=== PATIENT | male | born 1995 | race African-American/Black ===

== ENCOUNTER 2016-12-22 00:45 | Emergency (ER) | payer OTHER ==
[~2016-12-22] VITALS: Ht 170.2 cm; Wt 63.5 kg
--- NOTE | ~2016-12-22 | CR63 ---
[facility]. [facility] A Service of [facility] & [facility] RADIOLOGY TEXT RESULTS PATIENT: YUKO DUNN LOCATION: SED : 95 UNIT #: [id number] AGE: [address]: Romero Laura MD SEX: M ORDER DR: [id number] [place] [id number] MR#: [id number] Acc #: [id number] NAME: YUKO DUNN. : 1995 SEX: M STUDY DATE/TIME: 12/22/2016 02:06 UNIT: SED ROOM: STUDY DESCRIPTION: CR Chest 2 View Attending Physician: Romero Laura M.D. Ordering Physician: Romero Laura M.D. Primary Care Physician: Gee Bernal M.D. MEDICAL IMAGING REPORT This report is preliminary unless electronic signature is present. EXAM Chest x-ray 12/22 at 02:06 INDICATIONS Cough, chest pain, shortness of air that started last night. History of asthma. FINDINGS PA and lateral examination of the chest upright shows a good expansion of the parenchyma with a normal distribution of the pulmonary vascularity. There is no indication of congestion, effusion, infiltrate, tumor, or nodular density. The pleural reflections and diaphragmatic contours are normal. The cardiac silhouette and mediastinal anatomy is within normal limits. IMPRESSION Normal chest. Dictated by... Manpreet Hatfield Jr., M.D. THIS IS AN ELECTRONICALLY VERIFIED REPORT Manpreet Hatfield Jr., M.D. at 12/25/2016 5:50 AM SALVADOR/diego TD: 12/22/2016 10:46 JOB #: [id number] MEDICAL IMAGING REPORT Page 1 of 1
[~2016-12-22 00:45] MED LIST: ADVAIR 2501 DISK W/D PO; ALBUTEROL MININEB NEB; ALBUTEROL17 GM; ALBUTEROL17 GM INH; CILOXAN5 ML OD; CLARITIN10 MG PO; FLEXERIL10 MG PO; KETOCONAZOLE15 GM TP; PHENERGAN PO; QVAR7.3 GM INH; SINGULAIR PO
[2016-12-22] MEDS ORDERED: ALBUTEROL17 GM INH (00:58)
[2016-12-22] MEDS ORDERED: CLARITIN10 M3 PO (00:58)
[2016-12-22] MEDS ORDERED: ALBUTEROL2.5 MG/3 M INH (00:59)
== END 2016-12-22 03:11 | disposition home or self-care (01) ==
LOC: SED 00:45
DX: J45.901 Unspecified asthma with (acute) exacerbation (principal); Z87.891 Personal history of nicotine dependence
CPT/HCPCS: 71020; 99284